=== PATIENT | male | born 1965 | race Caucasian/White ===

== ENCOUNTER 2016-12-28 09:22 | Emergency (ER) | payer SELFPAY ==
[2016-12-28] MEDS ORDERED: Proparacaine 0.5% Opth 15 ML BOT ONE (09:39)
[2016-12-28] MEDS ORDERED: Tetracaine 0.5% OPHTH SOLN/PF 4 ML BOT ONE (09:40)
[2016-12-28] MEDS ORDERED: Adacel (T-DAP) 0.5 ML VIAL ONE (10:05)
[2016-12-28] MEDS ORDERED: Gentamicin Ophth Ointment 0.3% 3.5 gm Tube ONE (10:05)
[2016-12-28] MEDS ORDERED: Naproxen 500 MG TAB ONE (10:05)
== END 2016-12-28 10:17 | disposition home or self-care (01) ==
LOC: MADERS 09:22
DX: T15.01XA Foreign body in cornea, right eye, initial encounter (principal)
CPT/HCPCS: 90471; 90715